=== PATIENT | female | born 1980 | race African-American/Black ===

== ENCOUNTER 2018-05-18 19:04 | Emergency (ER) | payer MEDICAID ==
[~2018-05-18] VITALS: Ht 175.3 cm; Wt 109.0 kg
[~2018-05-18 19:04] MED LIST: BENAZEPRIL; INSULIN; METFORMIN
[2018-05-18] MEDS ORDERED: SODIUM CHLORIDE 0.9% 1,000 ML IV ONE (21:11)
[2018-05-18] MEDS ORDERED: HYDROCODONE/ACETAMINOPHEN 5/325MG TABLET PO STA (21:11)
[2018-05-18 21:13] LABS: CLARITY URINE CLEAR (CLEAR); COLOR URINE YELLOW (YELLOW); KETONES URINE NEGATIVE (NEGATIVE); LEUKOCYTE ESTERASE URINE NEGATIVE (NEGATIVE); NITRITE URINE NEGATIVE (NEGATIVE); OCCULT BLOOD URINE NEGATIVE (NEGATIVE); PROTEIN URINE NEGATIVE (NEGATIVE); SPECIFIC GRAVITY URINE 1.007 (1.005-1.030); UROBILINOGEN URINE 0.2 E.U./dL (0.2-1.0)
[2018-05-18 21:29] LABS: BASOPHILS % 1.2 % (0.0-2.0); EOSINOPHILS % 1.2 % (0.0-5.0); HEMATOCRIT. 39.2 % (36.0-48.0); HEMOGLOBIN. 12.8 g/dL (12.0-16.0); LYMPHOCYTES % 23.5 % (20.0-50.0); MEAN CORPUSCULAR HEMOGLOBIN 27.9 pg (28.0-32.0); MEAN CORPUSCULAR VOLUME 85.3 fL (81.0-99.0); MEAN PLATELET VOLUME 8.6 fl (7.4-10.4); MONOCYTES % 5.9 % (2.0-8.0); NEUTROPHILS % 68.2 % (40.0-76.0); PLATELET 320 x1000/uL (130-400); RED BLOOD CELL COUNT 4.59 mill/uL (4.2-5.4); RED CELL DISTRIBUTION WIDTH 13.7 % (11.6-14.6)
[2018-05-18 21:36] LABS: CHLORIDE 103 mEq/L (98-107)
[2018-05-18 23:13] VITALS: BP 149/82
== END 2018-05-18 23:13 | disposition home or self-care (01) ==
LOC: ER 19:57
DX: K04.7 Periapical abscess without sinus (principal); E11.9 Type 2 diabetes mellitus without complications; I10 Essential (primary) hypertension; F12.10 Cannabis abuse, uncomplicated; Z79.4 Long term (current) use of insulin; Z79.84 Long term (current) use of oral hypoglycemic drugs
CPT/HCPCS: 36415; 70450; 71045; 80053; 81003; 81025; 82962; 84484; 85025; 96360; 99284; J7030; Z7610

== ENCOUNTER 2020-06-27 10:12 | Emergency (ER) | payer MEDICAID ==
[~2020-06-27] VITALS: Ht 175.3 cm; Wt 109.0 kg
[2020-06-27] MEDS ORDERED: ACETAMINOPHEN 325MG TABLET PO ONE (12:15)
[2020-06-27] MEDS ORDERED: KETOROLAC 15MG/ML VIAL IV ONE (12:15)
[2020-06-27 12:35] LABS: BASOPHILS % 1.1 % (0.0-2.0); EOSINOPHILS % 0.7 % (0.0-5.0); HEMATOCRIT. 36.1 % (36.0-48.0); HEMOGLOBIN. 11.8 g/dL (12.0-16.0); LYMPHOCYTES % 24.5 % (20.0-50.0); MEAN CORPUSCULAR HEMOGLOBIN 25.5 pg (28.0-32.0); MEAN CORPUSCULAR VOLUME 77.9 fL (81.0-99.0); MEAN PLATELET VOLUME 8.5 fl (7.4-10.4); MONOCYTES % 5.4 % (2.0-8.0); NEUTROPHILS % 68.3 % (40.0-76.0); PLATELET 400 x1000/uL (130-400); RED BLOOD CELL COUNT 4.63 mill/uL (4.2-5.4); RED CELL DISTRIBUTION WIDTH 16.5 % (11.6-14.6)
[2020-06-27 12:47] LABS: CHLORIDE 107 mEq/L (98-107)
[2020-06-27 12:58] LABS: B-HCG QUANTITATIVE < 1 mIU/mL (<3)
[2020-06-27 15:08] VITALS: BP 142/79
== END 2020-06-27 15:14 | disposition home or self-care (01) ==
LOC: ER 10:12
DX: D21.9 Benign neoplasm of connective and other soft tissue, unspecified (principal); I10 Essential (primary) hypertension; E11.9 Type 2 diabetes mellitus without complications; Z98.890 Other specified postprocedural states
CPT/HCPCS: 36415; 76830; 76856; 80053; 82962; 84702; 85025; 93005; 96374; 99285; J1885; Z7610

== ENCOUNTER 2022-05-01 11:45 | Inpatient (IN) | payer MEDICAID ==
[~2022-05-01] VITALS: Ht 152.4 cm; Wt 107.0 kg
[2022-05-01 17:57] LABS: BASOPHILS % 1.2 % (0.0-2.0); EOSINOPHILS % 0.5 % (0.0-5.0); HEMATOCRIT. 33.8 % (36.0-48.0); HEMOGLOBIN. 10.2 g/dL (12.0-16.0); LYMPHOCYTES % 33.2 % (20.0-50.0); MEAN CORPUSCULAR HEMOGLOBIN 20.8 pg (28.0-32.0); MEAN CORPUSCULAR VOLUME 68.9 fL (81.0-99.0); MEAN PLATELET VOLUME 8.5 fl (7.4-10.4); NEUTROPHILS % 59.1 % (40.0-76.0); PLATELET 398 x1000/uL (130-400); RED BLOOD CELL COUNT 4.91 mill/uL (4.2-5.4); RED CELL DISTRIBUTION WIDTH 17.9 % (11.6-14.6)
[2022-05-01 18:05] LABS: CHLORIDE 104 mEq/L (98-107)
[2022-05-01 18:07] LABS: HCG SCREEN NEGATIVE
[2022-05-01 18:14] LABS: ETHANOL BLOOD < 10 mg/dL
[2022-05-01 18:46] LABS: PLATELET ESTIMATE NORMAL
[2022-05-01] MEDS ORDERED: HYDROCODONE/ACETAMINOPHEN 5/325MG TABLET PO NR (20:00)
[2022-05-01] MEDS ORDERED: ASPIRIN 81MG TABLET PO NR (20:00)
[2022-05-01] MEDS ORDERED: IOHEXOL-350 100 ML BOTTLE ONE (22:19)
[2022-05-01] MEDS ORDERED: AMLODIPINE 10MG TABLET PO ONE (23:00)
[2022-05-02] MEDS ORDERED: CLONIDINE 0.1MG TABLET PO NR (03:15)
[2022-05-02 10:05] VITALS: BP 152/73
[2022-05-02 10:10] VITALS: BP 153/72
[2022-05-02] MEDS ORDERED: ACETAMINOPHEN 325MG TABLET PO PRN (11:30)
[2022-05-02] MEDS ORDERED: ONDANSETRON HCL 4MG/2ML INJ IV PRN (11:30)
[2022-05-02] MEDS ORDERED: MAGNESIUM/ALUMINUM HYDROXIDE/SIMETHICONE 30ML UDC PO PRN (11:30)
[2022-05-02 12:15] VITALS: BP 153/88
[2022-05-02] MEDS ORDERED: DEXTROSE 50% WATER 50ML SYRINGE IV PRN (12:15)
[2022-05-02] MEDS: BLOOD SUGAR DIAGNOSTIC STRIP TEST SCH ×3 (12:53→21:24)
[2022-05-02] MEDS ORDERED: NALOXONE HCL 0.4MG/ML VIAL IV PRN (14:15)
[2022-05-02] MEDS: INSULIN LISPRO 100 UNITS/ML SUBCUT SCH ×3 (14:28→21:28)
[2022-05-02] MEDS ORDERED: VISCOUS LIDOCAINE 2% 15 ML UDC MM PRN (15:00)
[2022-05-02] MEDS ORDERED: POTASSIUM CHLORIDE 20MEQ TABLET SR PO NR (16:30)
[2022-05-02 16:51] VITALS: BP 165/101
[2022-05-02] MEDS: CLONIDINE 0.1MG TABLET PO PRN (17:04)
[2022-05-02] MEDS: ENOXAPARIN 40MG/0.4ML SYR SUBCUT SCH (17:05)
[2022-05-02] MEDS ORDERED: ENOXAPARIN 30MG/0.3ML SYR SUBCUT SCH (18:00)
[2022-05-02 20:00] VITALS: BP 168/84
[2022-05-02] MEDS: HYDROCODONE/ACETAMINOPHEN 5/325MG TABLET PO PRN (20:41)
[2022-05-02] MEDS ORDERED: ENOXAPARIN 40MG/0.4ML SYR SUBCUT SCH (21:00)
[2022-05-03] VITALS (7 sets, daily range): BP systolic 131–175; BP diastolic 73–114
[2022-05-03] MEDS: HYDROCODONE/ACETAMINOPHEN 5/325MG TABLET PO PRN ×4 (04:08→15:47)
[2022-05-03 06:49] LABS: BASOPHILS % 0.8 % (0.0-2.0); EOSINOPHILS % 2.1 % (0.0-5.0); HEMATOCRIT. 30.7 % (36.0-48.0); HEMOGLOBIN. 9.4 g/dL (12.0-16.0); LYMPHOCYTES % 28.1 % (20.0-50.0); MEAN CORPUSCULAR HEMOGLOBIN 21.2 pg (28.0-32.0); MEAN CORPUSCULAR VOLUME 69.2 fL (81.0-99.0); MEAN PLATELET VOLUME 8.8 fl (7.4-10.4); MONOCYTES % 7.9 % (2.0-8.0); NEUTROPHILS % 61.1 % (40.0-76.0); PLATELET 362 x1000/uL (130-400); RED BLOOD CELL COUNT 4.43 mill/uL (4.2-5.4); RED CELL DISTRIBUTION WIDTH 18.1 % (11.6-14.6)
[2022-05-03] MEDS: BLOOD SUGAR DIAGNOSTIC STRIP TEST SCH ×4 (07:07→20:28)
[2022-05-03 07:40] LABS: FERRITIN 6 ng/mL (10-291)
[2022-05-03] MEDS: INSULIN LISPRO 100 UNITS/ML SUBCUT SCH ×4 (07:57→20:36)
[2022-05-03] MEDS: ASPIRIN 81MG EC TABLET PO SCH (08:19)
[2022-05-03] MEDS: AMLODIPINE 10MG TABLET PO SCH (08:19)
[2022-05-03] MEDS: CLONIDINE 0.1MG TABLET PO PRN ×2 (08:45→15:47)
[2022-05-03] MEDS ORDERED: FERROUS SULFATE 325MG TABLET PO SCH (09:00)
[2022-05-03 09:58] LABS: CHLORIDE 104 mEq/L (98-107)
[2022-05-03 10:21] LABS: HDL CHOLESTEROL 61 mg/dL (40-59); LDL CHOLESTEROL 69 mg/dL (5-100); T4 FREE 1.05 ng/dL (0.76-1.46); TOTAL IRON BINDING CAPACITY 354 ug/dL (250-450)
[2022-05-03 10:43] LABS: FOLIC ACID (FOLATE) SERUM >20 ng/mL ng/mL (>5.38); VITAMIN B12 SERUM 530 pg/mL (211-911)
[2022-05-03] MEDS: GABAPENTIN 300MG CAPSULE PO SCH ×2 (13:23→22:40)
[2022-05-03] MEDS: IRON SUCROSE COMPLEX 100 MG/5 ML ML IV SCH (15:47)
[2022-05-03] MEDS: ENOXAPARIN 40MG/0.4ML SYR SUBCUT SCH (17:56)
[2022-05-04 00:50] VITALS: BP 144/91
[2022-05-04 03:49] VITALS: BP 141/99
[2022-05-04] MEDS: HYDROCODONE/ACETAMINOPHEN 5/325MG TABLET PO PRN ×2 (03:53→10:38)
[2022-05-04] MEDS: BLOOD SUGAR DIAGNOSTIC STRIP TEST SCH ×2 (06:43→11:50)
[2022-05-04] MEDS: GABAPENTIN 300MG CAPSULE PO SCH ×2 (06:44→14:26)
[2022-05-04 07:01] LABS: BASOPHILS % 1.1 % (0.0-2.0); HEMATOCRIT. 32.4 % (36.0-48.0); HEMOGLOBIN. 9.9 g/dL (12.0-16.0); LYMPHOCYTES % 32.8 % (20.0-50.0); MEAN CORPUSCULAR HEMOGLOBIN 21.2 pg (28.0-32.0); MEAN CORPUSCULAR VOLUME 69.1 fL (81.0-99.0); MONOCYTES % 8.7 % (2.0-8.0); NEUTROPHILS % 55.4 % (40.0-76.0); PLATELET 414 x1000/uL (130-400); RED BLOOD CELL COUNT 4.68 mill/uL (4.2-5.4); RED CELL DISTRIBUTION WIDTH 17.7 % (11.6-14.6)
[2022-05-04] MEDS: ASPIRIN 81MG EC TABLET PO SCH (09:55)
[2022-05-04] MEDS: AMLODIPINE 10MG TABLET PO SCH (09:55)
[2022-05-04 10:11] LABS: CHLORIDE 102 mEq/L (98-107)
[2022-05-04] MEDS ORDERED: ASPI-1406 PO (11:05)
[2022-05-04 12:00] VITALS: BP 135/84
[2022-05-04] MEDS: IRON SUCROSE COMPLEX 100 MG/5 ML ML IV SCH (14:22)
[2022-05-04] MEDS: INSULIN LISPRO 100 UNITS/ML SUBCUT SCH ×2 (14:24→14:25)
[2022-05-04 16:00] VITALS: BP 139/90
[2022-05-04 17:55] VITALS: BP 139/76
== END 2022-05-04 18:30 | disposition home health service (06) | DRG 45 ==
LOC: ER 11:45 → 3WST 05-02 00:01 → EDBEDREQSVC 05-02 00:13 → EDBEDREQ 05-02 00:13 → EDBEDREQTM 05-02 00:13 → EDBEDREQDT 05-02 00:13 → 3WST 05-02 09:27
PROVIDERS: ADMIT Internal Medicine; ATTEND Internal Medicine
DX: I63.81 Other cerebral infarction due to occlusion or stenosis of small artery (principal); G82.20 Paraplegia, unspecified; E11.40 Type 2 diabetes mellitus with diabetic neuropathy, unspecified; R47.01 Aphasia; D50.9 Iron deficiency anemia, unspecified; D25.9 Leiomyoma of uterus, unspecified; Z20.822 Contact with and (suspected) exposure to COVID-19; G25.81 Restless legs syndrome; I10 Essential (primary) hypertension; D53.9 Nutritional anemia, unspecified
CPT/HCPCS: 36415; 70486; 70496; 70498; 70551; 71045; 80048; 80053; 80061; 80320; 82607; 82728; 82746; 82962; 83036; 83540; 83550; 84439; 84443; 84484; 84703; 85025; 87426; 93005; 93970; 97162; 99291; C9803; J1650; J1815; Q9967; G0480